=== PATIENT | female | born 1965 | race Caucasian/White ===

== ENCOUNTER 2022-06-22 20:00 | Emergency (ER) | payer SELFPAY ==
[2022-06-22] MEDS ORDERED: Bacitracin 1 PK ONE (22:22)
[2022-06-22] MEDS ORDERED: HYDROcodone/Acetaminophen 10/325 mg Tablet ONE (22:23)
== END 2022-06-22 22:54 | disposition home or self-care (01) ==
LOC: ERS 20:00
DX: S90.32XA Contusion of left foot, initial encounter (principal); F17.210 Nicotine dependence, cigarettes, uncomplicated; W20.8XXA Other cause of strike by thrown, projected or falling object, initial encounter